=== PATIENT | male | born 1945 | race Caucasian/White ===

== ENCOUNTER → 2018-09-26 | Outpatient (REF) | payer MEDICARE ==
[~2018-09-26] MED LIST: AMOXICILLIN250 M1 PO; AMOXICILLIN500 MG PO; AUGMENTIN500TAB PO; AUGMENTIN875TAB PO; CEPHALEXIN500 MG OR; CETIRIZ/PSE1 TAB PO; CIPRO500 MG OR; EQL ASPIRIN81 MG PO; FLAGYL500 MG OR; FLONASE NASAL50 MCG; FLUZONE SPLT1 M1 IM; HYDROCHLOROT12.5 MG PO; LISINOP/HCTZ1 TAB PO; LISINOPRIL10 MG PO; LORTAB5 OR; MULTI 501 PO; MULTI VIT OR; ZPAK PO
[2018-09-26 08:53] LABS: ALBUMIN 4.3 g/dL (3.2-5.0); ALKALINE PHOSPHATASE 47 u/l (38-126); ANION GAP 14 (6-22 (CALC)); BILIRUBIN, TOTAL 1.2 mg/dL (0.0-1.4); BUN 19 mg/dL (8-23); BUN/CREATININE RATIO 20 (12-20 (CALC)); CALCULATED LDLCHOLESTEROL 81 mg/dL (62-129 (CALC)); CARBON DIOXIDE 27 mmol/l (22-30); CHLORIDE 103 mmol/l (95-108); CHOLESTEROL HDL RATIO 3.6 (<4.4 (CALC)); GFR > 60 ML/MIN (>=60 (CALC)); GFR FOR AFR.AMER. > 60 ML/MIN (>=60 (CALC)); HDL CHOLESTEROL 49 mg/dL (>=40); SGOT/AST 22 u/l (19-48); SODIUM 140 mmol/l (137-146); TOTAL CHOLESTEROL 177 mg/dl (0-199); TOTAL PROTEIN 6.7 g/dL (6.3-8.2); TOTAL TRIGLYCERIDES 236 mg/dl (30-149); VLDL CHOLESTROL 47 mg/dl (0-38 (CALC))
== END | disposition home or self-care (01) ==
LOC: LAB 06:46
PROVIDERS: ATTEND Internal Medicine Geriatric Medicine
DX: I10 Essential (primary) hypertension (principal)

== ENCOUNTER 2019-02-10 01:32 | Observation (INO) | payer MEDICARE ==
[2019-02-10] VITALS (9 sets, daily range): BP systolic 113–133; BP diastolic 60–78
[~2019-02-10] VITALS: Ht 172.7 cm; Wt 79.1 kg
[2019-02-10 02:25] LABS: HEMATOCRIT 46.2 % (39.0-50.0); HEMOGLOBIN 15.5 g/dl (14.0-18.0); IMMATURE GRANULOCYTES 0.5 % (0.0-5.0); MEAN CELL VOLUME 90.4 fL CALC (80.0-100.0); MEAN CORPUSCULAR HGB 30.3 pG CALC (26.0-32.0); MEAN CORPUSCULAR HGB CONC 33.5 g/L CALC (32.0-36.0); NEUT# 10.49 thou/uL (1.82-7.42); RED BLOOD COUNT 5.11 mill/uL (4.70-6.10); RED CELL DISTRI WIDTH 12.6 % (11.5-15.5)
[2019-02-10 02:29] LABS: ALBUMIN 4.4 g/dL (3.2-5.0); ALKALINE PHOSPHATASE 57 u/l (38-126); AMYLASE 70 u/l (30-110); ANION GAP 13 (6-22 (CALC)); BILIRUBIN, TOTAL 0.9 mg/dL (0.0-1.4); BUN 24 mg/dL (8-23); BUN/CREATININE RATIO 25 (12-20 (CALC)); CARBON DIOXIDE 28 mmol/l (22-30); CHLORIDE 102 mmol/l (95-108); GFR > 60 ML/MIN (>=60 (CALC)); GFR FOR AFR.AMER. > 60 ML/MIN (>=60 (CALC)); LIPASE 171 u/l (23-300); POTASSIUM 3.7 mmol/l (3.5-5.1); SGOT/AST 23 u/l (19-48); SODIUM 139 mmol/l (137-146); TOTAL PROTEIN 6.9 g/dL (6.3-8.2)
[2019-02-10 02:42] LABS: MYOGLOBIN 50 ng/mL (0 - 121)
[2019-02-10 03:00] LABS: URINE BILIRUBIN - DIPSTICK NEGATIVE (NEGATIVE); URINE BLOOD DIPSTICK NEGATIVE (NEGATIVE); URINE COLOR YELLOW; URINE GLUCOSE - DIPSTICK NEGATIVE (NEGATIVE); URINE KETONE 15 mg/dL (NEGATIVE); URINE LEUK ESTERASE NEGATIVE (NEGATIVE); URINE NITRITE - DIPSTICK NEGATIVE (Negative); URINE PROTEIN - DIPSTICK TRACE mg/dL (NEG-TRACE); URINE SPECIFIC GRAVITY 1.015; URINE UROBILINOGEN - DIPSTICK 0.2 E.U./dL (0.2)
[2019-02-10 07:22] LABS: HEMATOCRIT 43.3 % (39.0-50.0); HEMOGLOBIN 14.6 g/dl (14.0-18.0); IMMATURE GRANULOCYTES 0.6 % (0.0-5.0); MEAN CELL VOLUME 90.6 fL CALC (80.0-100.0); MEAN CORPUSCULAR HGB 30.5 pG CALC (26.0-32.0); MEAN CORPUSCULAR HGB CONC 33.7 g/L CALC (32.0-36.0); NEUT# 10.7 thou/uL (1.82-7.42); RED BLOOD COUNT 4.78 mill/uL (4.70-6.10); RED CELL DISTRI WIDTH 12.8 % (11.5-15.5)
[2019-02-10 07:38] LABS: ALBUMIN 3.7 g/dL (3.2-5.0); ALKALINE PHOSPHATASE 47 u/l (38-126); ANION GAP 12 (6-22 (CALC)); BILIRUBIN, TOTAL 1.2 mg/dL (0.0-1.4); BUN 19 mg/dL (8-23); BUN/CREATININE RATIO 21 (12-20 (CALC)); CARBON DIOXIDE 27 mmol/l (22-30); CHLORIDE 104 mmol/l (95-108); CREATININE 0.9 mg/dL (0.7-1.3); GFR > 60 ML/MIN (>=60 (CALC)); GFR FOR AFR.AMER. > 60 ML/MIN (>=60 (CALC)); POTASSIUM 4.1 mmol/l (3.5-5.1); SGOT/AST 21 u/l (19-48); SODIUM 138 mmol/l (137-146); TOTAL PROTEIN 6.2 g/dL (6.3-8.2)
[2019-02-10] MEDS ORDERED: PERCOCET 5/325M1 TAB PO (10:19)
[2019-02-10] MEDS ORDERED: CENTRUM SILVER1 TA2 (15:56)
== END 2019-02-10 17:45 | disposition home or self-care (01) ==
LOC: ED 01:32 → ED-I 03:50 → ED 04:04 → MS2 04:05
PROVIDERS: Emergency Medicine; ADMIT Internal Medicine Geriatric Medicine; ATTEND Internal Medicine Geriatric Medicine
PROC: 0DTJ4ZZ Resection of Appendix, Percutaneous Endoscopic Approach (ICD-10-PCS; principal; 2019-02-10)
DX: K35.30 Acute appendicitis with localized peritonitis, without perforation or gangrene (principal); I10 Essential (primary) hypertension; K21.9 Gastro-esophageal reflux disease without esophagitis; K27.9 Peptic ulcer, site unspecified, unspecified as acute or chronic, without hemorrhage or perforation; N40.0 Benign prostatic hyperplasia without lower urinary tract symptoms
CPT/HCPCS: J1100; J2710

== ENCOUNTER 2023-09-01 09:48 | Emergency (ER) | payer MEDICARE ==
[~2023-09-01] VITALS: Ht 172.7 cm; Wt 79.0 kg
[~2023-09-01 09:48] MED LIST changes: +CENTRUM SILVER1 TA2; +PERCOCET 5/325M1 TAB PO
[2023-09-01 10:34] VITALS: BP 157/77
[2023-09-01 10:50] LABS: BASO% 0.7 % (0-3); HEMATOCRIT 48.9 % (39.0-50.0); HEMOGLOBIN 16.3 g/dl (14.0-18.0); LYMPH% 16.8 % (15-41); MEAN CELL VOLUME 91.1 fL CALC (80.0-100.0); MEAN CORPUSCULAR HGB 30.4 pG CALC (26.0-32.0); MEAN CORPUSCULAR HGB CONC 33.3 g/dL CAL (32.0-36.0); MONO% 7.3 % (2-13); NEUT# 4.97 thou/uL (1.82-7.42); NEUT% 70.2 % (42-76); RED BLOOD COUNT 5.37 mill/uL (4.70-6.10); RED CELL DISTRI WIDTH 12.3 % (11.5-15.5)
[2023-09-01 11:02] LABS: URINE BILIRUBIN - DIPSTICK Negative (NEGATIVE); URINE BLOOD DIPSTICK Negative (NEGATIVE); URINE GLUCOSE - DIPSTICK Negative (NEGATIVE); URINE KETONE Trace mg/dL (NEGATIVE); URINE LEUK ESTERASE Negative (NEGATIVE); URINE NITRITE - DIPSTICK Negative (Negative); URINE PROTEIN - DIPSTICK Negative (NEG-TRACE); URINE SPECIFIC GRAVITY 1.025; URINE UROBILINOGEN - DIPSTICK 0.2 E.U./dL (0.2)
[2023-09-01 11:03] LABS: URINE COLOR Yellow
[2023-09-01 11:27] LABS: ALBUMIN 4.6 g/dL (3.2-5.0); ALKALINE PHOSPHATASE 57 u/l (38-126); ANION GAP 10 (6-22 (CALC)); BILIRUBIN, TOTAL 0.8 mg/dL (0.2-1.3); BUN 22 mg/dL (8-23); BUN/CREATININE RATIO 22 (12-20 (CALC)); CARBON DIOXIDE 26 mmol/l (22-30); CHLORIDE 105 mmol/l (95-108); GFR FOR AFR.AMER. > 60 ML/MIN (>=60 (CALC)); GFR OTHER RACES > 60 ML/MIN (>=60 (CALC)); POTASSIUM 4.1 mmol/l (3.5-5.1); SGOT/AST 30 u/l (19-48); SODIUM 137 mmol/l (137-146); TOTAL PROTEIN 7.3 g/dL (6.3-8.2)
[2023-09-01] MEDS ORDERED: KETOROLAC TROMETHAMINE 30 MG/ML SDV IV ONE (12:15)
[2023-09-01] MEDS ORDERED: ORPHENADRINE CITRATE 30 MG/ML AMP IV ONE (12:15)
[2023-09-01 12:29] VITALS: BP 164/88
[2023-09-01 13:01] VITALS: BP 180/90
[2023-09-01 13:10] VITALS: BP 162/84
== END 2023-09-01 13:10 | disposition home or self-care (01) ==
LOC: ED 09:48
PROVIDERS: Family Medicine
DX: R10.9 Unspecified abdominal pain (principal); I10 Essential (primary) hypertension